=== PATIENT | female | born 1960 | race Caucasian/White ===

== ENCOUNTER 2019-06-20 14:23 | Inpatient (IN) | payer OTHER ==
[~2019-06-20] VITALS: Ht 149.9 cm; Wt 43.1 kg
[2019-06-20 14:23] VITALS: BP_SYST 125
[2019-06-20 16:04] VITALS: BP_SYST 106
[2019-06-20 19:45] VITALS: BP_SYST 114
[2019-06-21 01:18] VITALS: BP_SYST 138
[2019-06-21 01:19] VITALS: BP_SYST 119
[2019-06-21 07:45] VITALS: BP_SYST 121
[2019-06-21 11:55] VITALS: BP_SYST 141
[2019-06-21 16:52] VITALS: BP_SYST 124
[2019-06-22 00:40] VITALS: BP_SYST 91
[2019-06-22 04:00] VITALS: BP_SYST 112
== END 2019-06-22 05:10 | DRG 72 ==
LOC: SED 14:23 → SMU 14:59
PROVIDERS: ADMIT Internal Medicine; ATTEND Internal Medicine
DX: G93.40 Encephalopathy, unspecified (principal); F20.9 Schizophrenia, unspecified
CPT/HCPCS: 87081; 99285

== ENCOUNTER → 2019-06-26 | Outpatient (CLI) | payer OTHER ==
[2019-06-26 10:55] LABS: CHOLESTEROL 200 mg/dL (<200); HDL CHOLESTEROL 67 mg/dL (>55); LDL CHOLESTEROL 110 mg/dL (<100); TRIGLYCERIDES 92 mg/dL (30-150)
== END | disposition home or self-care (01) ==
LOC: SLB 09:37
PROVIDERS: ATTEND Psychiatry & Neurology Psychiatry
DX: Z00.00 Encounter for general adult medical examination without abnormal findings (principal)
CPT/HCPCS: 36415; 80061; 83036

== ENCOUNTER 2019-12-12 15:43 | Emergency (ER) | payer OTHER ==
[~2019-12-12] VITALS: Ht 157.5 cm; Wt 47.6 kg
[2019-12-12 16:13] VITALS: BP_SYST 108
[2019-12-12] MEDS ORDERED: DOCU-144 PO (16:44)
[2019-12-12] MEDS ORDERED: HYDR-3908 PO (16:44)
[2019-12-12] MEDS ORDERED: MULT-1100 PO (16:44)
[2019-12-12] MEDS ORDERED: ASCO500C18 PO (16:44)
[2019-12-12] MEDS ORDERED: QUET150T2 PO (16:44)
[2019-12-12] MEDS ORDERED: ACET325C6 PO (16:44)
[2019-12-12] MEDS ORDERED: DIVA125T2 PO (16:44)
[2019-12-12] MEDS ORDERED: LOVA20TA2 PO (16:44)
[2019-12-12] MEDS ORDERED: QUET200T5 PO (16:44)
[2019-12-12 16:45] LABS: BASOPHILS % (AUTO) 0.8 % (0.0-2.0); EOSINOPHILS # (AUTO) 0.1 K/uL (0.0-0.4); EOSINOPHILS % (AUTO) 2.2 % (0.0-4.0); HEMATOCRIT 38.1 % (36-48); HEMOGLOBIN 12.5 g/dL (12.0-16.0); LYMPHOCYTES # (AUTO) 1.8 K/uL (1.0-5.5); LYMPHOCYTES % (AUTO) 30.6 % (20.5-51.5); MEAN CORPUSCULAR HEMOGLOBIN 31 pg (27-31); MEAN CORPUSCULAR HGB CONC 33 % (32-36); MEAN CORPUSCULAR VOLUME 96 fL (79.0-98.0); MONOCYTES # (AUTO) 0.6 K/uL (0.0-1.0); MONOCYTES % (AUTO) 9.6 % (1.7-9.3); NEUTROPHILS # (AUTO) 3.4 K/uL (1.8-7.7); NEUTROPHILS % (AUTO) 56.8 % (40.0-70.0); PLATELET COUNT (AUTO) 171 K/uL (130-430); RED BLOOD CELL COUNT(AUTO) 3.99 MIL/uL (4.2-6.2); RED CELL DISTRIBUTION WIDTH 14.6 % (9.0-15.0)
[2019-12-12 16:59] LABS: ANION GAP 4 (5-15); CALCIUM 8.9 mg/dL (8.4-11.0); CHLORIDE 99 mmol/L (98-107); CREATININE 0.94 mg/dL (0.55-1.30); GLUCOSE 101 mg/dL (70-99); POTASSIUM 4.2 mmol/L (3.5-5.1); SODIUM SERUM 135 mmol/L (136-145); UREA NITROGEN, BLOOD 21 mg/dL (8-21)
[2019-12-12 17:04] LABS: GFR AFRICAN AMERICAN 78 mL/min (>90)
[2019-12-12 17:05] LABS: ACETAMINOPHEN 1 ug/mL (1-30); ALANINE AMINOTRANSFERASE 77 U/L (12-78); ALBUMIN 3.4 g/dL (3.4-4.8); ASPARTATE AMINOTRANSFERASE 69 U/L (10-37); TOTAL BILIRUBIN 0.3 mg/dL (0.0-1.0)
[2019-12-12 17:13] LABS: ALCOHOL, BLOOD < 3 mg/dL (<10)
[2019-12-12 17:43] LABS: CHOLESTEROL 245 mg/dL (<200); HDL CHOLESTEROL 83 mg/dL (>55); LDL CHOLESTEROL 120 mg/dL (<100); TRIGLYCERIDES 91 mg/dL (30-150)
[2019-12-12 18:06] LABS: BILIRUBIN,URINE NEGATIVE (NEGATIVE); BLOOD, URINE NEGATIVE (NEGATIVE); CLARITY/URINE CLEAR (CLEAR); COLOR,URINE YELLOW (YELLOW); GLUCOSE,URINE NEGATIVE (NEGATIVE); KETONES,URINE NEGATIVE (NEGATIVE); LEUKOCYTE ESTERASE ,URINE NEGATIVE (NEGATIVE); NITRITE, URINE NEGATIVE (NEGATIVE); PH,URINE 6.5 (5.0-8.0); PROTEIN URINE NEGATIVE (NEGATIVE); UROBILINOGEN,URINE 0.2 (0.2-1.0)
[2019-12-12 18:14] LABS: UR TRICYCLIC ANTIDEPRESSANTS POSITIVE (NEG <=300)
[2019-12-12 18:15] LABS: BARBITURATE, URINE NEGATIVE (NEG <=200); BENZODIAZEPINE, URINE NEGATIVE (NEG <=150); CANNABINOID, URINE NEGATIVE (NEG <=50); COCAINE, URINE NEGATIVE (NEG <=150); METHAMPHETAMINES SCREEN,URINE NEGATIVE (NEG <=500); OPIATE, URINE NEGATIVE (NEG <=100); PHENCYCLIDINE SCREEN,URINE NEGATIVE (NEG <=25); URINE AMPHETAMINE NEGATIVE (NEG <=500); URINE METHADONE NEGATIVE (NEG <=200); URINE OXYCODONE SCREEN NEGATIVE (NEG <=100); URINE PROPOXYPHENE SCREEN NEGATIVE (NEG <=300)
[2019-12-12 19:20] VITALS: BP_SYST 110
[2019-12-13] MEDS ORDERED: PROPOFOL DRIP 100 ML IV ONE (11:22)
== END 2019-12-12 19:17 | disposition designated cancer center or children's hospital (05) ==
LOC: SED 15:43
DX: R45.1 Restlessness and agitation (principal); R41.0 Disorientation, unspecified; F20.9 Schizophrenia, unspecified; F03.90 Unspecified dementia, unspecified severity, without behavioral disturbance, psychotic disturbance, mood disturbance, and anxiety; E78.5 Hyperlipidemia, unspecified; Z79.899 Other long term (current) drug therapy
CPT/HCPCS: 36415; 80053; 80061; 80307; 81003; 83036; 85025; 87081; 99285; G0480; G0481; G0482; J2704